=== PATIENT | female | born 1970 | race Two or more races ===

== ENCOUNTER → 2017-12-28 11:25 | Emergency (ER) | payer BC ==
[~2017-12-28 11:25] MED LIST: Mouth Piece, Nicotine* 1 EACH CARTRIDGE INH ONE; Nicotine Inhaler* 10 MG AMP INH PRN
--- NOTE | 2017-12-28 11:42 | ED ---
Psychiatric Complaint - HPI Summary HPI Summary: This pt is a 47 y/o female presenting to [facility] c/o worsening depression and SI. Pt reports SI thoughts for a few months that has been progressively worsening. She states SI plan for about 1 month and is reluctant to say her plan, stating "it's hard to say it and if I say it, it take power away to do it." Pt states she has not seen a therapist yet stating "no one is available, I tried." She reports stressors of nephew committing suicide 3 years ago and parents' 2 years ago. Pt is on thyroid medications and gabapentin. She is not taking any antidepressants. No psychiatric PMHx. Denies tobacco and alcohol use. - History Of Current Complaint Chief Complaint: EDMentalHealth Time Seen by Provider: 12/28/17 11:34 Hx Obtained From: Patient Onset/Duration: Lasting Weeks, Still Present Timing: Weeks Severity Currently: Severe Character: Depressed Aggravating Factor(s): Recent Stress - 3 years ago nephew committed suicide. 2 years ago parents . Alleviating Factor(s): Nothing Has Suicidal: Reports: Thoughts, With A Plan Has Homicidal: Denies: Thoughts, With A Plan Recent Stressor(s): Family - Allergies/Home Medications Allergies/Adverse Reactions: Allergies Allergy/AdvReac Type Severity Reaction Status Date / Time No Known Allergies Allergy Verified 12/28/17 11:32 Home Medications: Home Medications Levothyroxine Sodium [Levoxyl] 200 mcg PO DAILY 12/28/17 [History Confirmed 08/09] PMH/Surg Hx/FS Hx/Imm Hx Endocrine/Hematology History: Reports: Hx Thyroid Disease Musculoskeletal History: Reports: Hx of Fracture(s) - bilateral hip fractures Psychiatric History: Denies: Hx Depression - Cancer History Hx Chemotherapy: No Hx Radiation Therapy: No Infectious Disease History: No Infectious Disease History: Denies: Traveled Outside the [place] in Last 30 Days - Family History Family History: Nephew who committed suicide. No other psych FHx. - Social History Occupation: Employed Full-time - own business Alcohol Use: None Substance Use Type: Reports: None Smoking Status (MU): Never Smoked Tobacco Review of Systems Negative: Fever, Chills Cardiovascular: Negative Respiratory: Negative Gastrointestinal: Negative Psychological: Other - POS: SI thoughts, SI plan Positive: Depressed. Negative: Other - HI All Other Systems Reviewed And Are Negative: Yes Physical Exam - Summary Physical Exam Summary: Appearance: Well appearing, no pain distress Skin: warm, dry, reflects adequate perfusion Head/face: normal Eyes: EOMI, LIO ENT: normal Neck: supple, non-tender Respiratory: CTA, breath sounds present Cardiovascular: RRR, pulses symmetrical Abdomen: non-tender, soft Bowel: present Musculoskeletal: normal, strength/ROM intact Neuro: normal, sensory motor intact, A&Ox3 Psych: flat affect, tearful, and persistent SI. Triage Information Reviewed: Yes Vital Signs On Initial Exam: Initial Vitals Temp Pulse Resp BP Pulse Ox 97.5 F 70 20 148/74 98 12/28/17 11:27 12/28/17 11:27 12/28/17 11:27 12/28/17 11:27 12/28/17 11:27 Vital Signs Reviewed: Yes Diagnostics - Vital Signs Vital Signs Temp Pulse Resp BP Pulse Ox 12/28/17 11:27 97.5 F 70 20 148/74 98 - Laboratory Result Diagrams: 12/28/17 11:58 12/28/17 11:58 Lab Statement: Any lab studies that have been ordered have been reviewed, and results considered in the medical decision making process. - EKG 12:00 Cardiac Rate: Bradycardia - at 58 bpm EKG Rhythm: Sinus Bradycardia Summary of EKG Findings: Normal axis. Normal interval. Normal ST. 12:04 Cardiac Rate: Bradycardia - at 58 bpm EKG Rhythm: Sinus Bradycardia Summary of EKG Findings: Normal axis. Normal interval. Normal ST. Re-Evaluation - Re-Evaluation First Eval Re-Evaluation Time: 11:46 Comment: Pt is medically cleared. Course/Dx - Course Assessment/Plan: Pt was medically cleared. Pt had a mental health evaluation and her case was reviewed by Dr. Pinzon, psychiatrist. Dr. Pinzon cleared the pt for discharge. Pt will be discharged home with outpatient follow up at [facility]. - Differential Dx/Clinical Impression Provider Diagnosis: Depressive disorder Discharge - Sign-Out/Discharge Documenting (check all that apply): Patient Departure - Discharge home - Discharge Plan Condition: Stable Disposition: HOME Patient Education Materials: Depression (ED) Referrals: [facility] [Outside] (Please follow up as soon as possible. Walk in hours are M-F 8am-4:30pm) Sylvain Armendariz MD [Primary Care Provider] - - Billing Disposition and Condition Condition: STABLE Disposition: Home - Attestation Statements Document Initiated by Marisa: Yes Documenting Scribe: Gretchen Tapia Provider For Whom Marisa is Documenting (Include Credential): Silverio Mckinney MD Scribe Attestation: Gretchen Noriega, scribed for Silverio Mckinney MD on 12/28/17 at 1824. Scribe Documentation Reviewed: Yes Provider Attestation: The documentation as recorded by the Gretchen salgado accurately reflects the service I personally performed and the decisions made by me, Silverio Mckinney MD
[2017-12-28 12:17] LABS: Urine Appearance Cloudy; Urine Blood Negative (Negative); Urine Color Yellow; Urine Ketones Trace (Negative); Urine Protein Negative (Negative); Urine Specific Gravity 1.014 (1.010-1.030); Urine Urobilinogen Positive (Negative)
[2017-12-28 12:19] LABS: ABS Basophils 0 10^3/ul (0-0.2); ABS Eosinophils 0.4 10^3/ul (0-0.6); ABS Lymphocytes 1.6 10^3/ul (1.0-4.8); ABS Monocytes 0.4 10^3/ul (0-0.8); ABS Neutrophils 5.6 10^3/ul (1.5-7.7); ABS Nucleated RBC 0 10^3/ul; Eosinophil % 5.4 % (0-6); Hematocrit 43 % (35-47); Hemoglobin 14.9 g/dl (12.0-16.0); Lymphocyte % 19.5 % (25-47); Mean Corpuscular HGB Conc 35 g/dl (31-36); Mean Corpuscular Hemoglobin 34 pg (27-31); Mean Corpuscular Volume 98 fL (80-97); Mean Platelet Volume 8.7 fL (7.4-10.4); Nucleated Red Blood Cells % 0.1; Platelet Count 222 10^3/ul (150-450); Red Blood Count 4.38 10^6/ul (4.00-5.40); Red Cell Distribution Width 12 % (10.5-15); White Blood Count 8.1 10^3/ul (3.5-10.8)
[2017-12-28 12:37] LABS: EGFR Non-African American 79.7 (>60)
[2017-12-28 16:38] VITALS: BP 137/81
== END | disposition home or self-care (01) ==
LOC: ED 11:25
DX: F32.9 Major depressive disorder, single episode, unspecified (principal); R45.851 Suicidal ideations; R00.1 Bradycardia, unspecified; E07.9 Disorder of thyroid, unspecified
CPT/HCPCS: 36415; 80053; 80307; 80320; 80329; 81003; 84443; 84702; 85025; 93005; 99285; G0480